=== PATIENT | female | born 1995 | race Caucasian/White ===

== ENCOUNTER 2016-09-25 09:03 | Emergency (ER) | payer BC, SELFPAY ==
[2016-09-25 09:20] VITALS: BP 132/81; PULSE 94; RESP 18; TEMP 97.5
--- NOTE | 2016-09-25 09:32 | ED ---
General Adult HPI - General Chief complaint: Headache Stated complaint: HEADACHE, SINUS Time Seen by Provider: 09/25/16 09:21 Source: patient, RN notes reviewed Mode of arrival: ambulatory Limitations: no limitations - History of Present Illness Initial comments: Patient 21-year-old female who presents emergency room today with chief complaint of increased sinus congestion and a headache. She does admit that she 's been sick for the past week and a half. States this started with cough congestion and mild sore throat. States saw progressed and now moved to her head. States feels increased pressure. She states she's having increased rhinorrhea. Patient denies any other complaints or symptoms. Patient denies any recent fever, chills, shortness of breath, chest pain, back pain, abdominal pain, nausea or vomiting, numbness or tingling, dysuria or hematuria, constipation or diarrhea, visual changes, or any other complaints. - Related Data Previous Rx's Medication Instructions Recorded Amoxicillin/Potassium Clav 1 each PO Q12HR #20 tab 09/25/16 [Augmentin 875-125 Tablet] Fluticasone Propionate [Flonase 1 - 2 spray EA NOSTRIL DAILY 5 Days 09/25/16 Allergy Relief] Ibuprofen [Motrin] 600 mg PO Q6HR PRN #40 day 09/25/16 Allergies Allergy/AdvReac Type Severity Reaction Status Date / Time No Known Allergies Allergy Verified 09/25/16 09:20 Review of Systems ROS Statement: Those systems with pertinent positive or pertinent negative responses have been documented in the HPI. ROS Other: All systems not noted in ROS Statement are negative. Past Medical History Past Medical History: No Reported History Additional Past Medical History / Comment(s): Obstetric history: This is her first and she has had care with me since 15 weeks. O+, abs neg, Rub Imm, RPR NR, Hep B neg, HIV NR. Normal anatomy US, declined quad, normal 1hr GTT and GBS neg. History of Any Multi-Drug Resistant Organisms: None Reported Additional Past Surgical History / Comment(s): right foot surgery Past Anesthesia/Blood Transfusion Reactions: No Reported Reaction Past Psychological History: No Psychological Hx Reported Smoking Status: Former smoker Past Alcohol Use History: Occasional Past Drug Use History: None Reported - Past Family History Mother Family Medical History: No Reported History General Exam - General Exam Comments Initial Comments: General: The patient is awake and alert, in no distress, and does not appear acutely ill. Eye: Pupils are equal, round and reactive to light, extra-ocular movements are intact. No nystagmus. There is normal conjunctiva bilaterally. No signs of icterus. Ears, nose, mouth and throat: There are moist mucous membranes and no oral lesions. TMs clear bilaterally. Patient does have tenderness over frontal sinuses. No tenderness over maxillary. Uvula midline. Patient swallows without difficulty. Neck: The neck is supple, there is no tenderness or JVD. Cardiovascular: There is a regular rate and rhythm. No murmur, rub or gallop is appreciated. Respiratory: Lungs are clear to auscultation, respirations are non-labored, breath sounds are equal. No wheezes, stridor, rales, or rhonchi. Musculoskeletal: Normal ROM, no tenderness. Strength 5/5. Sensation intact. Pulses equal bilaterally 2+. Neurological: A&O x 3. CN II-XII intact, There are no obvious motor or sensory deficits. Coordination appears grossly intact. Speech is normal. Skin: Skin is warm and dry and no rashes or lesions are noted. Psychiatric: Cooperative, appropriate mood & affect, normal judgment. Limitations: no limitations Course Vital Signs 09/25/16 09:17 Temperature 97.5 F L Pulse Rate 94 Respiratory 18 Rate Blood Pressure 132/81 O2 Sat by Pulse 99 Oximetry Medical Decision Making - Medical Decision Making 21-year-old female presenting with increased sinus congestion and headache. Patient tender over the sinuses. Vitals stable. Will be treated for sinus infection placed on Augmentin, Flonase, ibuprofen for pain. Patient advised to also use [id number] medications such as Claritin and Sudafed. Advised follow-up the family doctor over the next 2 days if symptoms aren't improving or return here to emergency room if any symptoms increase worsen. Patient states understanding and is in agreement with this plan. Disposition Clinical Impression: Acute sinusitis Disposition: HOME SELF-CARE Condition: Good Instructions: Sinusitis (ED) Additional Instructions: Please use medications as prescribed. Please use [id number] Claritin and Sudafed as discussed. Please follow-up the family doctor over the next 2 days if symptoms are unimproved or return here to the emergency room if any symptoms increase or worsen. Prescriptions: Amoxicillin/Potassium Clav [Augmentin 875-125 Tablet] 1 each PO Q12HR #20 tab Fluticasone Propionate [Flonase Allergy Relief] 1 - 2 spray EA NOSTRIL DAILY 5 Days Ibuprofen [Motrin] 600 mg PO Q6HR PRN #40 day PRN Reason: Pain Time of Disposition: 09:31
== END 2016-09-25 09:40 | disposition home or self-care (01) ==
LOC: EC 09:03
DX: J01.90 Acute sinusitis, unspecified (principal); Z87.891 Personal history of nicotine dependence
CPT/HCPCS: 99283

== ENCOUNTER 2017-11-07 11:24 | Emergency (ER) | payer BC ==
[2017-11-07 11:31] VITALS: BP 123/80; PULSE 97; RESP 18; TEMP 98.9
[2017-11-07] MEDS ORDERED: PROPARACAINE 0.5% OPHTH DROPS 15 ML BTL LEFT EYE STA (12:09)
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
== END 2017-11-07 13:17 | disposition home or self-care (01) ==
LOC: EC 11:24
DX: S05.02XA Injury of conjunctiva and corneal abrasion without foreign body, left eye, initial encounter (principal); Z87.891 Personal history of nicotine dependence; W51.XXXA Accidental striking against or bumped into by another person, initial encounter
CPT/HCPCS: 99283

== ENCOUNTER → 2020-03-26 | Outpatient (CLI) | payer BC ==
--- NOTE | 2020-03-26 09:22 | USB ---
Reason for exam: clinical finding. Indicated problem(s): lump or thickening in both breasts. Physical Findings: Nurse Summary: palpable in the right breast at 7 o'clock and 11 o'clock, palpable in the left breast at 12 o'clock (nurse dw). US Breast BILAT Right complete breast ultrasound includes all four quadrants, the retroareolar region and axilla. Finding demonstrates a 3 x 1 x 3mm oval, cystic lesion at 7 o'clock. Left complete breast ultrasound includes all four quadrants, the retroareolar region and axilla. Finding demonstrates including area of concern. These results were verbally communicated with the patient and result sheet given to the patient on 03/26/20. ASSESSMENT: Benign, BI-RAD 2 RECOMMENDATION: Routine screening mammogram of both breasts at age 38.
== END | disposition home or self-care (01) ==
LOC: RADUSWWP 08:09
PROVIDERS: ATTEND Obstetrics & Gynecology
DX: N64.4 Mastodynia (principal)